=== PATIENT | female | born 1995 | race Asian ===

== ENCOUNTER 2018-07-15 09:20 | Outpatient (CLI) | payer MEDICAID ==
[2018-07-15 12:49] LABS: HGB - HEMOGLOBIN 12.1 g/dL (12.0-16.0); MEAN CORPUSCULAR HEMOGLOBIN 31.8 pg (27.0-31.0); MEAN CORPUSCULAR HGB CONC 34.2 g/dL (32.0-36.0); MEAN CORPUSCULAR VOLUME 92.9 fL (81.0-99.0); MEAN PLATELET VOLUME 8.5 fL (7.9-10.8); RED BLOOD COUNT 3.8 10^6/uL (4.20-5.40); RED CELL DISTRIBUTION WIDTH 12.9 % (12.0-15.0); WHITE BLOOD COUNT 14.7 x10^3/uL (4.8-10.8)
== END 2018-07-15 23:59 | disposition home or self-care (01) ==
LOC: LAB.N 09:20
PROVIDERS: ATTEND Obstetrics & Gynecology
DX: O09.899 Supervision of other high risk pregnancies, unspecified trimester (principal)
CPT/HCPCS: 36415; 82950; 85027; 86850

== ENCOUNTER 2018-09-16 14:29 | Outpatient (CLI) | payer MEDICAID ==
[2018-09-17 12:56] LABS: HEPATITIS C ANTIBODY NON-REACTIVE (NON-REACTIVE)
[2018-09-17 14:57] LABS: HIV AG/AB 4TH GEN NON-REACTIVE (NON-REACTIVE)
[2018-09-20 13:31] LABS: HSV 2 IGG TYPE SPECIFIC AB <0.90 index
== END 2018-09-16 14:30 | disposition home or self-care (01) ==
LOC: LAB 14:29
PROVIDERS: ATTEND Nurse Practitioner Obstetrics & Gynecology
DX: Z36.85 Encounter for antenatal screening for Streptococcus B (principal); B19.10 Unspecified viral hepatitis B without hepatic coma
CPT/HCPCS: 36415; 81599; 86592; 86695; 86696; 86803; 87389; 87517

== ENCOUNTER 2018-09-27 14:04 | Outpatient (CLI) | payer MEDICAID ==
[2018-09-27 14:30] LABS: ALT ALANINE AMINOTRANSFERASE 13 IU/L (10-60); AST ASPARTATE AMINOTRANSFERASE 17 IU/L (10-42)
== END 2018-09-27 14:05 | disposition home or self-care (01) ==
LOC: LAB 14:04
PROVIDERS: ATTEND Obstetrics & Gynecology
DX: B19.10 Unspecified viral hepatitis B without hepatic coma (principal)
CPT/HCPCS: 36415; 84450; 84460

== ENCOUNTER 2018-09-28 13:32 | Outpatient (CLI) | payer MEDICAID | END 2018-09-28 23:59 | disposition home or self-care (01) | LOC: LAB.R 13:32 | PROVIDERS: ATTEND Obstetrics & Gynecology | DX: Z36.89 Encounter for other specified antenatal screening (principal) | CPT/HCPCS: 87797 ==

== ENCOUNTER 2018-10-05 08:23 | Inpatient (IN) | payer MEDICAID ==
[2018-10-05 09:37] LABS: RUPTURE OF MEMBRANES PLUS NEGATIVE (NEGATIVE)
[2018-10-05] MEDS ORDERED: SODIUM CHLORIDE FLUSH 0.9% 10 ML SYRINGE IVP PRN (11:33)
[2018-10-05] MEDS ORDERED: fentaNYL 100 MCG/2 ML VIAL IVP PRN (11:33)
[2018-10-05] MEDS ORDERED: ONDANSETRON 4 MG/2 ML VIAL IVP PRN ×2 (11:33→17:52)
[2018-10-05] MEDS: LACTATED RINGERS 1,000 ML IV SCH ×2 (11:50→16:30)
--- NOTE | 2018-10-05 12:19 | HISTORY & PHYSICAL EXAMINATION ---
Chief Complaint - Chief Complaint Chief Complaint: LEAKAGE OF FLUID History of Present Illness - Admitted From Admitted From:: HOME - History Obtained From Records Reviewed: YES History obtained from: PATIENT Exam Limitations: NONE - History of Present Illness HPI Comment/Other: 23 yo with EDC 10/16/18 EGA 38 3/7 weeks admitted with gross SROM clear at 0200 hours. On exam noted to be 4/60/-2/VTX at 1106 hours. Noted to have Category I tracing and occasional rate contraction. Admitted for delivery. Adequate pelvis, Leopolds 7 - 7 1/2 lbs, GBS Neg. Patient transferred care from [facility]. Seen at [facility] for first time on 08/19/18 @ 31 5/7 weeks. Referred to [facility]. DC @ [place] from [facility] due to Hepatitis B Carrier, with normal LFT and Hep B viral load of 243 at 12 weeks. M recommended: 1) Repeat viral load & LFTs @ 28 & 36 weeks (not done at 28 weeks, done at 36 weeks): -if viral load >20,000 IU/mL consider tenofovir therapy 2) Route of delivery for obstetrical indications, not viral load. 3) HBIG and Hep B vaccine immediately pp 4) Breast Feeding is OK Viral load at 12 weeks was 243 with normal LFTs. Additional labs at 12 weeks: HBsAg: + HBviralE Ag: Neg HB viral E Ab: + HCV Ab: Neg Viral load on 09/16/18: 819 Other Labs: CF DNA 46xy Rubella <10 without interpretation (will treat as Equivocal/Neg) MBT B POS PNAS Neg Syphillis Neg (09/16/18 RPR NR) HIV NR 03/14/18: PAP WNL GC/CT NEG X 2 1 hr GTT 129 on 07/15/18 AST/ALT 17/13 (09/27/18) 09/16/18 Tests: Hep C Ab NR HSV I POS HSV II NR (Patient placed on acyclovir prophylaxis but HSV II test negative. Patient with no hx genital HSV and no sx or lesions on admission). -This was explained to patient and partner and they voiced understanding about negative HSV II results and no need to take acyclovir. 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 - Substance History Use: Uses substance without health or social issues: NONE Abuse: Recurrent use of substance despite neg consequences: NONE Dependence: Experiences withdrawal or developed tolerances: NONE Meds/Allgy - Allergies Allergies/Adverse Reactions: Allergies Allergy/AdvReac Type Severity Reaction Status Date / Time No Known Drug Allergies Allergy Verified 10/05/18 11:29 Review of Systems - All Other Systems All Other Systems: reports: Other (ROS NEG FOR HEENT/CV/RESP/MS/NM/SKIN/EDOCRINE/GI//PSYCH) Exam - Vital Signs Vital Signs: Vital Signs x48h Temp Pulse Resp BP Pulse Ox 10/05/18 08:40 36.8 C 81 16 105/70 100 - Physical Exam General Appearance: positive: No acute distress, Alert Eyes Bilateral: positive: Normal inspection, PERRL ENT: positive: ENT inspection nml Neck: positive: Nml inspection, Thyroid nml Respiratory: positive: Chest non-tender, No respiratory distress Cardiovascular: positive: Regular rate & rhythm, No murmur, No gallop Peripheral Pulses: positive: 2+ Abdomen: positive: Non-tender, No organomegaly Back: positive: Nml inspection Skin: positive: Color nml, No rash, Warm Extremities: positive: Non-tender, Full ROM, Nml appearance, No pedal edema Neurologic/Psychiatric: positive: Oriented x3, CN's nml (2-12), Motor nml (CX 4/60/-2 with gross clear fluid on perineum and coming out vagina.) Conclusion/Plan - Problem List (1) SROM (spontaneous rupture of membranes) Conclusion/Plan: # 38 3/7 weeks with SROM clear at 0200 hours w/ cervix 4/60/2 @ 1106 hours, occas. cxn with Category I FHR, GBS Neg, for pitocin augmentation. # Hep B Carrier seen by MFM: See my HPI for recommendations. Peds aware regarding HBIG and vaccine immediate pp for # Vaccines: Patient did get TDAP # MBT RH POS # Routine orders. Pitocin augmentation of labor. Note: HSV II testing this month was NEG.
[2018-10-05 12:27] LABS: BASOPHILS % (AUTO) 0.3 %; EOSINOPHILS % (AUTO) 0.2 %; HGB - HEMOGLOBIN 13.5 g/dL (12.0-16.0); LYMPHOCYTES # (AUTO) 1.7 10^3/uL (1.5-3.5); LYMPHOCYTES % (AUTO) 10.2 %; MEAN CORPUSCULAR HEMOGLOBIN 31.5 pg (27.0-31.0); MEAN CORPUSCULAR HGB CONC 34.4 g/dL (32.0-36.0); MEAN CORPUSCULAR VOLUME 91.5 fL (81.0-99.0); MEAN PLATELET VOLUME 8.7 fL (7.9-10.8); MONOCYTES # (AUTO) 0.7 10^3/uL (0.0-1.0); NEUTROPHILS # (AUTO) 14.2 10^3/uL (1.5-6.6); NEUTROPHILS % (AUTO) 85.3 %; PLT - PLATELET COUNT 181 10^3/uL (130-450); RED BLOOD COUNT 4.29 10^6/uL (4.20-5.40); RED CELL DISTRIBUTION WIDTH 13.8 % (12.0-15.0); WHITE BLOOD COUNT 16.6 x10^3/uL (4.8-10.8)
[2018-10-05] MEDS: OXYTOCIN/SODIUM CHLORIDE 500 ML IV SCH (13:01)
[2018-10-05] MEDS ORDERED: fent/BUPIV 2 MCG/0.125% 250 ML EP ONE (16:22)
[2018-10-05] MEDS ORDERED: NALBUPHINE 10 MG/ML AMP IVP PRN (17:52)
[2018-10-05] MEDS ORDERED: METOCLOPRAMIDE 10 MG/2 ML VIAL IVP PRN (17:52)
[2018-10-05] MEDS ORDERED: ePHEDrine 50 MG/ML VIAL IVP PRN (17:52)
[2018-10-05] MEDS ORDERED: diphenhydrAMINE INJ 50 MG/ML VIAL IVP PRN (17:52)
[2018-10-05] MEDS ORDERED: LACTATED RINGERS 500 ML IV ONE (17:52)
[2018-10-05] MEDS ORDERED: NALOXONE 0.4 MG/ML VIAL IVP PRN (17:52)
--- NOTE | 2018-10-05 17:52 | ANESTHESIA ---
Pre-Anesthesia VS, & Labs - Diagnosis term labor, IUP - Procedure GABBY Vital Signs: Temp Pulse Resp BP Pulse Ox 36.8 C 81 16 105/70 100 10/05/18 08:40 10/05/18 08:40 10/05/18 08:40 10/05/18 08:40 10/05/18 08:40 Height 5 ft 6.14 in Weight (kg) 73.028 kg - NPO Last Fluid Intake: t/o day - Is Patient ?: Yes - Lab Results Current Lab Results: Laboratory Tests 10/05/18 11:50: Blood Type B POSITIVE, Antibody Screen NEGATIVE 10/05/18 11:50: WBC 16.6 H, RBC 4.29, Hgb 13.5, Hct 39.2, MCV 91.5, MCH 31.5 H, MCHC 34.4, RDW 13.8, Plt Count 181, MPV 8.7, Neut # (Auto) 14.2 H, Lymph # (Auto) 1.7, [place] # (Auto) 0.7, Eos # (Auto) 0.0, Baso # (Auto) 0.0, Absolute Nucleated RBC 0.00, Nucleated RBC % 0.0 Lab results reviewed: Yes Fish Bones: 10/05/18 11:50 Home Medications and Allergies Active Medications Fentanyl (Fentanyl) 50 mcg IVP Q1H PRN PRN Reason: PAIN Last Admin: 10/05/18 16:28 Dose: 50 mcg Lactated Ringer's (Lr) 1,000 mls @ 150 mls/hr IV .Q6H40M [facility] Last Admin: 10/05/18 16:30 Dose: 150 mls/hr Oxytocin/Sodium Chloride (Pitocin/Sodium Chloride) 500 mls @ 1 mls/hr IV TITR HUGH; Protocol Last Admin: 10/05/18 13:01 Dose: 1 milliunit/min, 1 mls/hr Ondansetron HCl (Zofran Inj) 4 mg IVP Q4H PRN PRN Reason: Nausea / Vomiting Sodium Chloride (Normal Saline Flush 0.9%) 10 ml IVP PRN PRN PRN Reason: NEEDED PER PROVIDER ORDERS Sodium Chloride (Normal Saline Flush 0.9%) 10 ml IVP 0100,0900,1700 [facility] Allergies/Adverse Reactions: Allergies Allergy/AdvReac Type Severity Reaction Status Date / Time No Known Drug Allergies Allergy Verified 10/05/18 11:29 Anes History & Medical History - Anesthetic History Anesthesia Complications: reports: No previous complications Family history of Anesthesia Complications: Denies Family history of Malignant Hyperthermia: Denies - Medical History Cardiovascular: reports: None Pulmonary: reports: None Gastrointestinal: reports: Hepatitis (Hepatitis B Carrier (see HPI)) Urinary: reports: None Neuro: reports: None Musculoskeletal: reports: None Skin: reports: None Smoking Status: Never smoker Other Past Medical History: NONE Exam General: Alert, Oriented x3, Cooperative Dental: WNL Mallampati classification: II Thyromental Distance: 4-6 cm Respiratory: No respiratory distress Cardiovascular: Regular rate Mental/Cognitive Status: Alert/Oriented X3, Normal for patient Plan Anesthesia Type: Epidural Consent for Procedure(s) Verified and Reviewed: Yes Code Status: Attempt Resuscitation ASA classification: 2-Mild systemic disease Is this case an emergency?: No
--- NOTE | 2018-10-05 18:10 | PROVIDER PROGRESS NOTE ---
Subjective - Prog Note Date Prog Note Date: 10/05/18 Prog Note Time: 16:00 - Subjective Subjective: 550/-1 AT 1558 HOURS. CATEGORY 1 WITH REGULAR CONTRACTIONS. ON 4 MIU. Objective - Vital Signs/Intake & Output Intake & Output: Intake & Output 10/02/18 10/03/18 10/04/18 10/05/18 23:59 23:59 23:59 23:59 Intake Total 1000 Output Total 375 Balance 625 - Lab Results Fish Bones: 10/05/18 11:50 Other Labs: Lab Results x24hrs 10/05/18 10/05/18 10/05/18 Range/Units 11:50 11:50 09:05 WBC 16.6 H (4.8-10.8) x10^3/uL RBC 4.29 (4.20-5.40) 10^6/uL Hgb 13.5 (12.0-16.0) g/dL Hct 39.2 (37.0-47.0) % MCV 91.5 (81.0-99.0) fL MCH 31.5 H (27.0-31.0) pg MCHC 34.4 (32.0-36.0) g/dL RDW 13.8 (12.0-15.0) % Plt Count 181 (130-450) 10^3/uL MPV 8.7 (7.9-10.8) fL Neut # (Auto) 14.2 H (1.5-6.6) 10^3/uL Lymph # (Auto) 1.7 (1.5-3.5) 10^3/uL [place] # (Auto) 0.7 (0.0-1.0) 10^3/uL Eos # (Auto) 0.0 (0.0-0.7) 10^3/uL Baso # (Auto) 0.0 (0.0-0.1) 10^3/uL Absolute Nucleated RBC 0.00 x10^3/uL Nucleated RBC % 0.0 /100WBC Membranes Rupture NEGATIVE (NEGATIVE) Blood Type B POSITIVE Antibody Screen NEGATIVE
[2018-10-05] MEDS ORDERED: LIDOCAINE-MPF 1% 30 ML VIAL ONE (18:19)
[2018-10-05] MEDS ORDERED: WITCH HAZEL/GLYCERIN 1 EACH MED..PAD TOP PRN (19:59)
[2018-10-05] MEDS ORDERED: MEASLES,MUMPS & RUBELLA VACC 0.5 ML VIAL SUBQ ONE (19:59)
[2018-10-05] MEDS ORDERED: oxyCODONE 5 MG TABLET PO PRN (19:59)
[2018-10-05] MEDS ORDERED: HYDROCORTISONE 1% CREAM 28 GM TUBE PR PRN (19:59)
--- NOTE | 2018-10-05 20:12 | PROVIDER PROGRESS NOTE ---
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 Was able to push to C/C/+4 until maternal exhaustion. Verbal consent obtained for vacuum procedure. Kiwi vacuum applied in routine fashion and suction placed in normal green zone during two consecutive contractions. On 2nd set of push-pulls patient delivered viable male infant at 1900 hours weighing 7 lbs 12 onz or 3,515 GM with 9/10. Cord gases could not be obtained. Pitocin infusion started and placenta delivered spontaneously at 1902 hours. Vaginal exam revealed intact cervix and and vaginal sidewalls. Patient had 2nd degree perineal lac and small right superficial PUL that was not bleeding. PUL left alone. Perineal lac repaired with 3-0 monocryl in layers. EBL 400 mL. Mother and baby doing well. Objective - Vital Signs/Intake & Output Vital Signs: Vital Signs x48h Pulse BP Pulse Ox 10/05/18 19:25 93 117/54 L 100 10/05/18 19:10 91 117/47 L 100 Intake & Output: Intake & Output 10/02/18 10/03/18 10/04/18 10/05/18 23:59 23:59 23:59 23:59 Intake Total 1000 Output Total 375 Balance 625 - Lab Results Fish Bones: 10/05/18 11:50 Other Labs: Lab Results x24hrs 10/05/18 10/05/18 10/05/18 Range/Units 11:50 11:50 09:05 WBC 16.6 H (4.8-10.8) x10^3/uL RBC 4.29 (4.20-5.40) 10^6/uL Hgb 13.5 (12.0-16.0) g/dL Hct 39.2 (37.0-47.0) % MCV 91.5 (81.0-99.0) fL MCH 31.5 H (27.0-31.0) pg MCHC 34.4 (32.0-36.0) g/dL RDW 13.8 (12.0-15.0) % Plt Count 181 (130-450) 10^3/uL MPV 8.7 (7.9-10.8) fL Neut # (Auto) 14.2 H (1.5-6.6) 10^3/uL Lymph # (Auto) 1.7 (1.5-3.5) 10^3/uL [place] # (Auto) 0.7 (0.0-1.0) 10^3/uL Eos # (Auto) 0.0 (0.0-0.7) 10^3/uL Baso # (Auto) 0.0 (0.0-0.1) 10^3/uL Absolute Nucleated RBC 0.00 x10^3/uL Nucleated RBC % 0.0 /100WBC Membranes Rupture NEGATIVE (NEGATIVE) Blood Type B POSITIVE Antibody Screen NEGATIVE
[2018-10-05] MEDS: DOCUSATE SODIUM 100 MG CAPSULE PO SCH (20:31)
[2018-10-05] MEDS: IBUPROFEN 800 MG TABLET PO PRN (20:31)
[2018-10-05] MEDS: ACETAMINOPHEN 500 MG TABLET PO PRN (20:31)
[2018-10-06] MEDS: SODIUM CHLORIDE FLUSH 0.9% 10 ML SYRINGE IVP SCH ×2 (00:59→07:58)
[2018-10-06] MEDS: ACETAMINOPHEN 500 MG TABLET PO PRN ×2 (04:02→18:59)
[2018-10-06] MEDS: IBUPROFEN 800 MG TABLET PO PRN ×2 (04:02→18:59)
[2018-10-06 06:42] LABS: BASOPHILS % (AUTO) 0.1 %; EOSINOPHILS % (AUTO) 0.1 %; HGB - HEMOGLOBIN 11.1 g/dL (12.0-16.0); LYMPHOCYTES % (AUTO) 10.4 %; MEAN CORPUSCULAR HEMOGLOBIN 31.7 pg (27.0-31.0); MEAN CORPUSCULAR HGB CONC 33.8 g/dL (32.0-36.0); MEAN CORPUSCULAR VOLUME 93.7 fL (81.0-99.0); MEAN PLATELET VOLUME 8.8 fL (7.9-10.8); MONOCYTES % (AUTO) 5.3 %; NEUTROPHILS % (AUTO) 84.1 %; PLT - PLATELET COUNT 181 10^3/uL (130-450); RED BLOOD COUNT 3.51 10^6/uL (4.20-5.40); RED CELL DISTRIBUTION WIDTH 13.9 % (12.0-15.0); WHITE BLOOD COUNT 19.1 x10^3/uL (4.8-10.8)
[2018-10-06] MEDS: SIMETHICONE CHEW 80 MG TABLET PO SCH (07:57)
--- NOTE | 2018-10-06 11:18 | ANESTHESIA POST OP EVALUATION ---
Anesthesia Post Eval - Post Anesthesia Eval CV Function Including HR & BP: positive: Stable - Other Details/Therapies Other Details/Therapies: Patient reports epidural worked well to control labor pain. Denies any headache or residual effect. No apparent anesthetic complications
--- NOTE | 2018-10-06 14:32 | PROVIDER PROGRESS NOTE ---
Subjective - Prog Note Date Prog Note Date: 10/06/18 Prog Note Time: 14:30 - Subjective Pt reports feeling: Improved (No complaints doing well.) Objective - Vital Signs/Intake & Output Reviewed Vital Signs: Yes Vital Signs: Vital Signs x48h Temp Pulse Resp BP Pulse Ox 10/06/18 08:11 37.3 C 71 16 94/56 L 98 Intake & Output: Intake & Output 10/03/18 10/04/18 10/05/18 10/06/18 23:59 23:59 23:59 23:59 Intake Total 1000 300 Output Total 375 600 Balance 625 -300 - Objective General Appearance: positive: No acute distress Abdomen: positive: Non-tender, Other (Ux firm U-4 and NT normal lochia) Extremities: positive: Non-tender, Full ROM, Nml appearance, No pedal edema Neurologic/Psychiatric: positive: Oriented x3 - Lab Results Fish Bones: 10/06/18 06:07 Other Labs: Lab Results x24hrs 10/06/18 Range/Units 06:07 WBC 19.1 H (4.8-10.8) x10^3/uL RBC 3.51 L (4.20-5.40) 10^6/uL Hgb 11.1 L (12.0-16.0) g/dL Hct 32.9 L (37.0-47.0) % MCV 93.7 (81.0-99.0) fL MCH 31.7 H (27.0-31.0) pg MCHC 33.8 (32.0-36.0) g/dL RDW 13.9 (12.0-15.0) % Plt Count 181 (130-450) 10^3/uL MPV 8.8 (7.9-10.8) fL Neut # (Auto) 16.0 H (1.5-6.6) 10^3/uL Lymph # (Auto) 2.0 (1.5-3.5) 10^3/uL [place] # (Auto) 1.0 (0.0-1.0) 10^3/uL Eos # (Auto) 0.0 (0.0-0.7) 10^3/uL Baso # (Auto) 0.0 (0.0-0.1) 10^3/uL Absolute Nucleated RBC 0.01 x10^3/uL Nucleated RBC % 0.0 /100WBC Assessment/Plan - Problem List (2) care and examination Impression: PPD #1 doing well Routine care.
[2018-10-06] MEDS: DOCUSATE SODIUM 100 MG CAPSULE PO SCH ×2 (20:50)
[2018-10-07] MEDS: IBUPROFEN 800 MG TABLET PO PRN ×2 (05:45→21:05)
[2018-10-07] MEDS: ACETAMINOPHEN 500 MG TABLET PO PRN ×2 (05:46→21:05)
[2018-10-07] MEDS: LACTATED RINGERS 1,000 ML IV SCH ×4 (05:59→06:02)
[2018-10-07] MEDS: SIMETHICONE CHEW 80 MG TABLET PO SCH ×3 (05:59→06:02)
[2018-10-07] MEDS: OXYTOCIN/SODIUM CHLORIDE 500 ML IV SCH (06:00)
[2018-10-07] MEDS: SODIUM CHLORIDE FLUSH 0.9% 10 ML SYRINGE IVP SCH ×2 (06:00→06:01)
--- NOTE | 2018-10-07 11:45 | PROVIDER PROGRESS NOTE ---
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 Baby probably going home tomorrow.) Objective - Vital Signs/Intake & Output Vital Signs: Vital Signs x48h Temp Pulse Resp BP Pulse Ox 10/07/18 09:54 36.6 C 70 17 90/45 L 97 10/07/18 05:52 36.8 C 78 16 95/59 L 100 Intake & Output: Intake & Output 10/04/18 10/05/18 10/06/18 10/07/18 23:59 23:59 23:59 23:59 Intake Total 1000 300 Output Total 375 600 Balance 625 -300 - Objective General Appearance: positive: No acute distress, Alert Abdomen: positive: Non-tender, Other (Ux U-4 and NT normal lochia) Skin: positive: Color nml, No rash, Warm Extremities: positive: Non-tender (Ux Firm U-4 and NT normal lochia MS/NM NC) - Lab Results Fish Bones: 10/06/18 06:07 Assessment/Plan - Problem List (3) care and examination Impression: # PPD 2 doing well # Routine care. 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
[2018-10-07] MEDS: DOCUSATE SODIUM 100 MG CAPSULE PO SCH (21:05)
[2018-10-08] MEDS: IBUPROFEN 800 MG TABLET PO PRN ×2 (06:23→14:31)
[2018-10-08] MEDS: SIMETHICONE CHEW 80 MG TABLET PO SCH ×2 (09:43→15:48)
[2018-10-08] MEDS ORDERED: MEASLES,MUMPS & RUBELLA VACC 0.5 ML VIAL SUBQ ONE (12:00)
--- NOTE | 2018-10-08 12:08 | DISCHARGE SUMMARY ---
"Discharge Summary Admit Date: 10/05/18 Discharge Date: 10/08/18 Discharging Provider: ZARA Code Status: Attempt Resuscitation Condition at Discharge: Good Discharge Disposition: 01 Home, Self Care - DIAGNOSES Admission Diagnoses: SROM LABOR TERM Discharge Diagnoses with Status of Each Condition: VACUUM ASSITED VAGINAL DELIVERY (STABLE) CHRONIC HEPATITIS B CARRIER (STABLE) - HPI History of Present Illness: - History of Present Illness HPI Comment/Other: 23 yo with EDC 10/16/18 EGA 38 3/7 weeks admitted with gross SROM clear at 0200 hours. On exam noted to be 4/60/-2/VTX at 1106 hours. Noted to have Category I tracing and occasional rate contraction. Admitted for delivery. Adequate pelvis, Leopolds 7 - 7 1/2 lbs, GBS Neg. Patient transferred care from [facility]. Seen at [facility] for first time on 08/19/18 @ 31 5/7 weeks. Referred to [facility] [place] from [facility] due to Hepatitis B Carrier, with normal LFT and Hep B viral load of 243 at 12 weeks. MFM recommended: 1) Repeat viral load & LFTs @ 28 & 36 weeks (not done at 28 weeks, done at 36 weeks): -if viral load >20,000 IU/mL consider tenofovir therapy 2) Route of delivery for obstetrical indications, not viral load. 3) HBIG and Hep B vaccine immediately pp 4) Breast Feeding is OK Viral load at 12 weeks was 243 with normal LFTs. Additional labs at 12 weeks: HBsAg: + HBviralE Ag: Neg HB viral E Ab: + HCV Ab: Neg Viral load on 09/16/18: 819 Other Labs: CF DNA 46xy Rubella <10 without interpretation (will treat as Equivocal/Neg) MBT B POS PNAS Neg Syphillis Neg (09/16/18 RPR NR) HIV NR 03/14/18: PAP WNL GC/CT NEG X 2 1 hr GTT 129 on 07/15/18 AST/ALT 17/13 (09/27/18) 09/16/18 Tests: Hep C Ab NR HSV I POS HSV II NR (Patient placed on acyclovir prophylaxis but HSV II test negative. Patient with no hx genital HSV and no sx or lesions on admission). -This was explained to patient and partner and they voiced understanding about negative HSV II results and no need to take acyclovir. 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 - Substance History Use: Uses substance without health or social issues: NONE Abuse: Recurrent use of substance despite neg consequences: NONE Dependence: Experiences withdrawal or developed tolerances: NONE Meds/Allgy - Allergies Allergies/Adverse Reactions: Allergies Allergy/AdvReac Type Severity Reaction Status Date / Time No Known Drug Allergies Allergy Verified 10/05/18 11:29 Review of Systems - All Other Systems All Other Systems: reports: Other (ROS NEG FOR HEENT/CV/RESP/MS/NM /SKIN/EDOCRINE/GI//PSYCH) Exam - Vital Signs Vital Signs: Vital Signs x48h Temp Pulse Resp BP Pulse Ox 10/05/18 08:40 36.8 C 81 16 105/70 100 - Physical Exam General Appearance: positive: No acute distress, Alert Eyes Bilateral: positive: Normal inspection, PERRL ENT: positive: ENT inspection nml Neck: positive: Nml inspection, Thyroid nml Respiratory: positive: Chest non-tender, No respiratory distress Cardiovascular: positive: Regular rate & rhythm, No murmur, No gallop Peripheral Pulses: positive: 2+ Abdomen: positive: Non-tender, No organomegaly Back: positive: Nml inspection Skin: positive: Color nml, No rash, Warm Extremities: positive: Non-tender, Full ROM, Nml appearance, No pedal edema Neurologic/Psychiatric: positive: Oriented x3, CN's nml (2-12), Motor nml (CX 4/60/-2 with gross clear fluid on perineum and coming out vagina.) Conclusion/Plan - Problem List (1) SROM (spontaneous rupture of membranes) Conclusion/Plan: # 38 3/7 weeks with SROM clear at 0200 hours w/ cervix 60/2 @ 1106 hours, occas. cxn with Category I FHR, GBS Neg, for pitocin augmentation. # Hep B Carrier seen by MFM: See my HPI for recommendations. Peds aware regarding HBIG and vaccine immediate pp for # Vaccines: Patient did get TDAP # MBT RH POS # Routine orders. Pitocin augmentation of labor. Note: HSV II testing this month was NEG. - CONSULTS | PROCEDURES Consultations: NONE Procedures: EPIDURAL ANESTHESIA VACUUM ASSISTED VAGINAL DELIVERY - HOSPITAL COURSE Hospital Course: The patient progressed through labor without complication on low dose pitocin augmentation. Delivered viable 3,515 gm male . Maternal Hep B count approx 800, well below number of 20,000 for which therapy would have been recommended. Peds aware of maternal diagnosis and immunizations . Mother had an uncomplicated course. - ALLERGIES Allergies/Adverse Reactions: Allergies Allergy/AdvReac Type Severity Reaction Status Date / Time No Known Drug Allergies Allergy Verified 10/05/18 11:29 - MEDICATIONS Home Medications Other | Comments: Motrin 800 mg #45: 1 p.o. q8h WF, 1 RF Colace 100 mg #40: 1 p.o. bid PNV (at home) - PHYSICAL EXAM AT DISCHARGE General Appearance: positive: No acute distress, Alert Eyes Bilateral: positive: Normal inspection Peripheral Pulses: positive: 2+ Abdomen: positive: Non-tender, No organomegaly, Other (Ux firm U-6 and NT, normal lochia) Back: positive: Nml inspection Skin: positive: Color nml, No rash, Warm Extremities: positive: Non-tender, Full ROM, Nml appearance Neurologic/Psychiatric: positive: Oriented x3 - LABS Result Diagrams: 10/06/18 06:07 - FOLLOW UP Follow Up: Dr. Knowles at [facility] in 6 weeks. Patient to make new appointment in [facility] in [place] in 1-2 weeks, she has information card with phone number. - TIME SPENT Time Spent in Discharge (Minutes): 45"
--- NOTE | 2018-10-08 12:17 | Discharge Plan ---
Discharge Plan Disposition: 01 Home, Self Care Condition: Good Diet: Regular Activity Restrictions: see written instructions Shower Restrictions: No Additional Instructions or Follow Up instructions: See Dr. Knowles in [facility] 6 weeks Patient to see her PCM in [place] for new patient visit, she has the clinic information, told to call clinic in 1-2 weeks, to follow for Chronic Hep B No Smoking: If you smoke, Please STOP! Call for help. Follow-up with: Tip Knowles MD [Provider Admit Priv/Credential] -
[2018-10-08] MEDS: DOCUSATE SODIUM 100 MG CAPSULE PO SCH ×2 (14:30→14:31)
[2018-10-08 15:09] VITALS: BP 103/64
--- NOTE | 2018-10-08 16:09 | Labor Flowsheet ---
Labor Flowsheet Datetime Report Generated by CPN: 10/08/2018 16:08 Datetime: 10/06/2018 21:06 VITAL SIGNS NBP Sys/Sonia/Mean (mmHg): 94 : 52 : 61 Pulse: 74 LaborFlag: Labor Datetime: 10/05/2018 21:00 SpO2 (%): 94 Datetime: 10/05/2018 19:51 Membranes Ruptured Date/Time: 10/04/2018 02:00 Membranes Rupture Method: Spontaneous Datetime: 10/05/2018 19:00 Respirations: Unable to get accurate assessment of respiratory rate d/t pt hyperventilating to cope with pain. Pt was repeatedly encouraged to slow her breathing and relax inbetween ctx. O2 sat WNL, p t pink, no signs of cyanosis, difficulty breathing, or lightheadedness. UTERINE ACTIVITY Monitor Mode: External Frequency (min): 2 Quality: Strong Duration (sec): 40-80 Pattern: Normal: <= 5 Contractions in 10 Minutes Resting Tone (Palpate): Relaxed ASSESSMENT A Monitor Mode: Telemetry FHR Baseline Rate : indeterminate Variability: Minimal - Undetectable to <=5 bpm Category: Category II Datetime: 10/05/2018 18:55 Accelerations: None Decelerations: Early; Variable Datetime: 10/05/2018 18:20 Actions for Decelerations: Provider Notified Datetime: 10/05/2018 18:10 VAGINAL EXAM Dilatation (cm): 10.0 COMMUNICATION Communication: Provider at Bedside Provider Notified (Name): Kim Datetime: 10/05/2018 18:00 Stage of : Labor Datetime: 10/05/2018 17:57 Communication Comments: Notfited provider pt is 9cm, feels like she needs to "poop". Cervix is retr actable. Please come check pt and assess for delivery Datetime: 10/05/2018 17:55 Effacement (%): 100 Station: 2 Exam by: EM Datetime: 10/05/2018 17:50 Monitor Interventions for UA: [place] Adjusted Datetime: 10/05/2018 17:34 Patient Position/Activity: Right Lateral; Low Fowlers Epidural Procedure: Loading Dose Datetime: 10/05/2018 17:03 Anesthesia Comments: cath pulled Datetime: 10/05/2018 17:00 FHR Baseline Changes: No Baseline Change Datetime: 10/05/2018 16:53 PROCEDURE TIME OUT Procedure Verify: Correct Patient Identity; Correct Side and Site are Marked; Accurate Procedure Co nsent Form; Agreement on Procedure to be Done; Correct Patient Position; Relevant Images and Results are Properly Labeled and Displayed; Addressed Need to Administer Antibiotics or Fluids for Irrigation ; Safety Precautions Based on Patient History or Medication Use ANESTHESIA Epidural Positioning: Sitting Datetime: 10/05/2018 16:52 MEDICATIONS Pitocin (milliunits): Decreased to @ 3 Datetime: 10/05/2018 16:40 Temperature (C): 36.8 PAIN Pain Scale: 10 Pain Assessment Comments: Pt hyperventilating with ctx Datetime: 10/05/2018 16:28 Analgesics/Sedatives: Fentanyl (mcg) @ 50 Datetime: 10/05/2018 16:11 I/O Interventions: Up to BR Datetime: 10/05/2018 14:30 Temperature Route: Oral Datetime: 10/05/2018 13:41 Hygiene: Peripad Changed Datetime: 10/05/2018 11:50 PATIENT CARE IV/Blood Work: IV Started; Labs Drawn with IV Start
== END 2018-10-08 16:00 | disposition home or self-care (01) | DRG 806 ==
LOC: FBP 08:23 → WFO 08:23 → FBP 09:33 → WFO 11:32 → FBP 11:33
PROVIDERS: ADMIT Obstetrics & Gynecology; ATTEND Obstetrics & Gynecology
PROC: 10D07Z6 Extraction of Products of Conception, Vacuum, Via Natural or Artificial Opening (ICD-10-PCS; principal; 2018-10-05)
PROC: 0KQM0ZZ Repair Perineum Muscle, Open Approach (ICD-10-PCS; 2018-10-05)
DX: O99.834 Other infection carrier state complicating childbirth (principal); B18.1 Chronic viral hepatitis B without delta-agent; O75.81 Maternal exhaustion complicating labor and delivery; O70.1 Second degree perineal laceration during delivery; Z37.0 Single live birth; Z3A.38 38 weeks gestation of pregnancy; Z86.19 Personal history of other infectious and parasitic diseases
CPT/HCPCS: 36415; 84112; 85025; 86850; 86900; 86901; 99213

== ENCOUNTER 2018-11-28 08:00 | Outpatient (CLI) | payer MEDICAID ==
[2018-11-28 19:42] LABS: BASOPHILS # (AUTO) 0.1 10^3/uL (0.0-0.1); BASOPHILS % (AUTO) 0.6 %; EOSINOPHILS # (AUTO) 0.1 10^3/uL (0.0-0.7); HGB - HEMOGLOBIN 14.4 g/dL (12.0-16.0); LYMPHOCYTES % (AUTO) 21.8 %; MEAN CORPUSCULAR HEMOGLOBIN 29.5 pg (27.0-31.0); MEAN CORPUSCULAR HGB CONC 32.7 g/dL (32.0-36.0); MEAN CORPUSCULAR VOLUME 90.4 fL (81.0-99.0); MEAN PLATELET VOLUME 8.8 fL (7.9-10.8); MONOCYTES # (AUTO) 0.7 10^3/uL (0.0-1.0); MONOCYTES % (AUTO) 7.5 %; NEUTROPHILS # (AUTO) 6.4 10^3/uL (1.5-6.6); NEUTROPHILS % (AUTO) 69.1 %; PLT - PLATELET COUNT 241 10^3/uL (130-450); RED BLOOD COUNT 4.89 10^6/uL (4.20-5.40); RED CELL DISTRIBUTION WIDTH 13.7 % (12.0-15.0); WHITE BLOOD COUNT 9.2 x10^3/uL (4.8-10.8)
[2018-11-28 20:00] LABS: FERRITIN 48.4 ng/mL (11.0-306.8)
[2018-11-28 20:12] LABS: ALBUMIN 4.1 g/dL (3.2-5.5); ALBUMIN/GLOBULIN RATIO 1.3 (1.0-2.2); BILIRUBIN,TOTAL 0.6 mg/dL (0.2-1.0); CALCIUM 9.8 mg/dL (8.5-10.3); CREATININE 0.5 mg/dL (0.4-1.0); TOTAL PROTEIN 7.2 g/dL (6.7-8.2)
[2018-11-29 11:16] LABS: HEPATITIS B SURFACE ANTIGEN REACTIVE (NON-REACTIVE)
[2018-11-29 14:06] LABS: HEPATITIS C ANTIBODY NON-REACTIVE (NON-REACTIVE)
[2018-11-29 14:35] LABS: HIV AG/AB 4TH GEN NON-REACTIVE (NON-REACTIVE)
== END 2018-11-28 23:59 | disposition home or self-care (01) ==
LOC: LAB.N 08:00
PROVIDERS: ATTEND Nurse Practitioner
DX: B19.10 Unspecified viral hepatitis B without hepatic coma (principal)
CPT/HCPCS: 36415; 80053; 81599; 82607; 82728; 82746; 83540; 84466; 85025; 86317; 86803; 87340; 87389; 87517

== ENCOUNTER 2018-12-13 08:13 | Outpatient (CLI) | payer MEDICAID ==
--- NOTE | 2018-12-13 18:06 | Ultrasound Report ---
Reason: HEPATITIS B Procedure Date: 12/13/2018 Accession Number: [id number] / [id number] Procedure: US - Abdomen Complete CPT Code: FULL RESULT: EXAM: ABDOMEN ULTRASOUND EXAM DATE: 12/13/2018 09:20 AM. CLINICAL HISTORY: HEPATITIS B. COMPARISON: None. TECHNIQUE: Real-time scanning was performed with static images obtained. FINDINGS: Liver: Normal in size and echotexture. 16.1 cm. Main portal vein flow: Hepatopetal. Gallbladder: Normal. No stones, wall thickening, or sonographic Bro's sign. Biliary System: Common bile duct measures 3.2 mm. No intrahepatic or extrahepatic ductal dilatation. Pancreas: Imaged portion is unremarkable. Kidneys: Right: 10.5 cm longitudinally. Normal. No contour-deforming mass, stones, or hydronephrosis. Left: 10.6 cm longitudinally. Normal. No contour-deforming mass, stones, or hydronephrosis. Spleen: 11.1 cm. Normal in size and echotexture. Aorta and Inferior Vena Cava: Unremarkable. Free fluid: None. IMPRESSION: Normal abdomen ultrasound. RADIA
== END 2018-12-13 08:14 | disposition home or self-care (01) ==
LOC: DI 08:13
PROVIDERS: ATTEND Psychiatry & Neurology Neurology
DX: B19.10 Unspecified viral hepatitis B without hepatic coma (principal)
CPT/HCPCS: 76700

== ENCOUNTER 2021-05-16 12:25 | Outpatient (CLI) | payer MEDICAID | END 2021-05-16 12:26 | disposition home or self-care (01) | LOC: LAB 12:25 | PROVIDERS: ATTEND Obstetrics & Gynecology | DX: R22.1 Localized swelling, mass and lump, neck (principal) | CPT/HCPCS: 36415; 84443 ==

== ENCOUNTER 2021-08-03 16:23 | Outpatient (CLI) | payer MEDICAID ==
--- NOTE | 2021-08-03 17:42 | Ultrasound Report ---
PROCEDURE: Pelvic w/Transvaginal INDICATIONS: DYSMENORRHEA TECHNIQUE: Real-time scanning was performed of the pelvic organs, with image documentation. Additional endovagi nal scanning was necessary due to incomplete visualization of the adnexal and endometrial structures by transabdominal scanning. COMPARISON: None. FINDINGS: No pathologic free abdominal or pelvic fluid. Uterus: Uterus is normal in size at 9.0 x 4.6 x 5.3 cm. The endometrium measures 8 mm in combined t hickness. A mid posterior subserosal fibroid measures 1.3 x 1.0 x 1.8. The cervix has a naboth[facility] cy st. Pelvic vasculature is prominent. Ovaries: The right ovary measures 3.3 x 2.5 x 2.9 cm. There is an involuting cyst measuring 2.0 x 2. 3 x 1.7 cm. The left ovary measures 2.1 x 1.3 x 2.8 cm. IMPRESSION: 1. No acute pelvic abnormality. 2. Involuting right ovarian cyst. 3. Uterine fibroid. Reviewed by: Veto Lemon on 08/03/2021 4:41 PM [place] Approved by: Veto Lemon on 08/03/2021 4:41 PM [place] Station ID: [id number]
== END 2021-08-03 16:24 | disposition home or self-care (01) ==
LOC: DI 16:23
PROVIDERS: ATTEND Obstetrics & Gynecology
DX: N94.6 Dysmenorrhea, unspecified (principal); N83.201 Unspecified ovarian cyst, right side; D25.2 Subserosal leiomyoma of uterus

== ENCOUNTER 2022-10-29 10:00 | Outpatient (CLI) | payer MEDICAID ==
[2022-10-29 15:56] LABS: BILIRUBIN,URINE NEGATIVE (NEGATIVE); GLUCOSE, URINE (UA) NEGATIVE (NEGATIVE); KETONES,URINE (UA) NEGATIVE (NEGATIVE); LEUKOCYTE ESTERASE, URINE SMALL (NEGATIVE); NITRITE,URINE NEGATIVE (NEGATIVE); OCCULT BLOOD,URINE NEGATIVE (NEGATIVE); PH,URINE 6.5 PH (5.0-7.5); PROTEIN,URINE NEGATIVE (NEGATIVE); UROBILINOGEN,URINE 0.2 (NORMAL) E.U./dL (NORMAL)
[2022-10-29 16:00] LABS: CLARITY,URINE CLEAR (CLEAR)
[2022-10-29 16:17] LABS: BACTERIA,URINE Rare /HPF (None Seen); RBC,URINE None Seen /HPF (0-5); SQUAMOUS EPITHELIAL CELL,UR FEW Squamous (<= Few)
== END 2022-10-29 22:35 | disposition home or self-care (01) ==
LOC: LAB.R 10:00
PROVIDERS: ATTEND Obstetrics & Gynecology
DX: Z34.90 Encounter for supervision of normal pregnancy, unspecified, unspecified trimester (principal)
CPT/HCPCS: 81001; 87086

== ENCOUNTER 2022-10-30 13:58 | Outpatient (CLI) | payer MEDICAID ==
[2022-10-30 18:01] LABS: BASOPHILS # (AUTO) 0.1 10^3/uL (0.0-0.1); BASOPHILS % (AUTO) 0.5 %; EOSINOPHILS # (AUTO) 0.1 10^3/uL (0.0-0.7); EOSINOPHILS % (AUTO) 0.6 %; HCT - HEMATOCRIT 41.4 % (37.0-47.0); HGB - HEMOGLOBIN 13.6 g/dL (12.0-16.0); LYMPHOCYTES # (AUTO) 2.2 10^3/uL (1.5-3.5); LYMPHOCYTES % (AUTO) 16.7 %; MEAN CORPUSCULAR HEMOGLOBIN 29.8 pg (27.0-31.0); MEAN CORPUSCULAR HGB CONC 32.9 g/dL (32.0-36.0); MEAN CORPUSCULAR VOLUME 90.6 fL (81.0-99.0); MEAN PLATELET VOLUME 10.3 fL (7.9-10.8); MONOCYTES # (AUTO) 0.6 10^3/uL (0.0-1.0); MONOCYTES % (AUTO) 4.9 %; PLT - PLATELET COUNT 251 10^3/uL (130-450); RED BLOOD COUNT 4.57 10^6/uL (4.20-5.40); RED CELL DISTRIBUTION WIDTH 13.2 % (12.0-15.0)
[2022-10-31 07:09] LABS: RPR Non Reactive (Non Reactive)
[2022-10-31 08:10] LABS: HCV AB Non Reactive (Non Reactive); HIV SCREEN 4TH GENERATION Non Reactive (Non Reactive); VARICELLA-ZOSTER AB IGG 1178 index (Immune >165)
[2022-10-31 09:09] LABS: HBsAG CONFIRMATION Positive (.); HBsAG SCREEN Confirm. indicated (Negative)
== END 2022-10-30 13:59 | disposition home or self-care (01) ==
LOC: LAB.N 13:58
PROVIDERS: ATTEND Obstetrics & Gynecology
DX: Z34.90 Encounter for supervision of normal pregnancy, unspecified, unspecified trimester (principal)
CPT/HCPCS: 36415; 85025; 86592; 86762; 86787; 86803; 86850; 86900; 86901; 87340; 87389

== ENCOUNTER 2022-11-05 10:06 | Outpatient (CLI) | payer MEDICAID ==
[2022-11-05 12:23] LABS: ALBUMIN/GLOBULIN RATIO 1.1 (1.0-2.2); BILIRUBIN,TOTAL 0.6 mg/dL (0.2-1.0); CALCIUM 9.5 mg/dL (8.5-10.3); CREATININE 0.6 mg/dL (0.4-1.0); POTASSIUM 3.9 mmol/L (3.5-5.0); TOTAL PROTEIN 7.6 g/dL (6.7-8.2)
[2022-11-06 06:10] LABS: HEPATITIS BE ANTIGEN Positive (Negative)
[2022-11-09 09:38] LABS: HEPATITIS BE ANTIBODY Positive (Negative)
[2022-11-10 07:10] LABS: HBV IU/ML 290 IU/mL (.); HBV IU/ML LOG10 2.462 (.)
== END 2022-11-05 10:07 | disposition home or self-care (01) ==
LOC: LAB.N 10:06
PROVIDERS: ATTEND Obstetrics & Gynecology
DX: B19.10 Unspecified viral hepatitis B without hepatic coma (principal)
CPT/HCPCS: 36415; 80053; 86707; 87350; 87517

== ENCOUNTER 2022-11-11 09:51 | Outpatient (CLI) | payer MEDICAID ==
--- NOTE | 2022-11-11 16:59 | Ultrasound Report ---
PROCEDURE: OB First Trimester w/TV INDICATIONS: POSITIVE TEST OUTSIDE/PRIOR DATING DATA: Last menstrual period (LMP): 09/16/2022. LMP-based estimated date of delivery (RAFI): 06/23/2023. First dating scan (date and location): 11/11/2022. Estimated date of delivery (RAFI) from first dating scan: 07/06/2023. TECHNIQUE: Real-time scanning was performed of the fetus and maternal pelvic organs, with image documentation. Endovaginal scanning was also performed to better visualize the fetus and maternal ovaries. COMPARISON: None FINDINGS: Embryo: Single intrauterine is identified with crown-rump length measuring 0.48 cm corresp onding to 6 weeks 1 day. Subchorionic hemorrhage is present measuring 1.9 x 1.4 x 0.4 cm. Heart rate: Not identified Measurement variability in dating: +/- 4 weeks by LMP, +/- 7 days by mean sac diameter (use before 6 weeks gestation if crown-rump length not able to be measured), +/- 5 days by crown-rump length (6-12 weeks gestation). Maternal organs: Ovaries are unremarkable. IMPRESSION: Single to measuring 6 weeks 1 day without identified heart tones. Recommend correlation to beta hCG levels and short interval imaging follow-up to document progression versus demise. Reviewed by: Cindy Lovett MD on 11/11/2022 4:57 PM PDT Approved by: Cindy Lovett MD on 11/11/2022 4:57 PM PDT Station ID: [id number]
== END 2022-11-11 09:52 | disposition home or self-care (01) ==
LOC: DI 09:51
PROVIDERS: ATTEND Obstetrics & Gynecology
DX: O36.8310 Maternal care for abnormalities of the fetal heart rate or rhythm, first trimester, not applicable or unspecified (principal); Z3A.01 Less than 8 weeks gestation of pregnancy

== ENCOUNTER 2022-11-24 21:09 | Outpatient (CLI) | payer MEDICAID ==
--- NOTE | 2022-11-24 22:22 | Ultrasound Report ---
PROCEDURE: OB First Trimester w/TV INDICATIONS: POSITIVE TEST OUTSIDE/PRIOR DATING DATA: Last menstrual period (LMP): 09/16/2022. LMP-based estimated date of delivery (RAFI): 06/23/2023. First dating scan (date and location): 11/11/2022. Estimated date of delivery (RAFI) from first dating scan: 07/06/2023. The below data below was generated using the ultrasound RAFI of 07/06/2023 TECHNIQUE: Real-time scanning was performed of the fetus and maternal pelvic organs, with image documentation. Endovaginal scanning was also performed to better visualize the fetus and maternal ovaries. COMPARISON: OB ultrasound 11/11/2022. FINDINGS: Embryo: Newberg-rump length measures 0.65 cm corresponding to gestational age of 6 weeks 3 days. This is minimally increased compared to 11/11/2022 where the crown-rump length measured 0.48 cm. (Prior ges tational age 6 weeks 1 day). Heart rate: Not seen. A yolk sac is seen. Small subchorionic hemorrhage measuring 1.9 x 1.8 x 1.8 cm. Measurement variability in dating: +/- 4 weeks by LMP, +/- 7 days by mean sac diameter (use before 6 weeks gestation if crown-rump length not able to be measured), +/- 5 days by crown-rump length (6-12 weeks gestation). Maternal organs: Ovaries are within normal limits. Left corpus luteum. Cervix is closed. IMPRESSION: Ultrasound findings diagnostic of failure. Absence of embryo with a heart beat 11 or more days after ultrasound showed gestational sac with a yo lk sac. Reviewed by: Steve Tom MD on 11/24/2022 10:21 PM PDT Approved by: Steve Tom MD on 11/24/2022 10:21 PM PDT Station ID: [id number]
== END 2022-11-24 21:10 | disposition home or self-care (01) ==
LOC: DI 21:09
PROVIDERS: ATTEND Obstetrics & Gynecology
DX: O35.8XX0 Maternal care for other (suspected) fetal abnormality and damage, not applicable or unspecified (principal); Z3A.01 Less than 8 weeks gestation of pregnancy

== ENCOUNTER 2022-12-11 09:33 | Outpatient (CLI) | payer MEDICAID | END 2022-12-11 09:34 | disposition home or self-care (01) | LOC: LAB 09:33 | PROVIDERS: ATTEND Obstetrics & Gynecology | DX: O02.1 Missed abortion (principal) | CPT/HCPCS: 36415; 84702 ==

== ENCOUNTER 2022-12-18 13:22 | Outpatient (CLI) | payer MEDICAID | END 2022-12-18 13:23 | disposition home or self-care (01) | LOC: LAB.N 13:22 | PROVIDERS: ATTEND Obstetrics & Gynecology | DX: O02.1 Missed abortion (principal) | CPT/HCPCS: 36415; 84702 ==

== ENCOUNTER 2023-01-01 08:06 | Outpatient (CLI) | payer MEDICAID ==
[2023-01-01 12:14] LABS: BASOPHILS # (AUTO) 0.1 10^3/uL (0.0-0.1); BASOPHILS % (AUTO) 0.7 %; EOSINOPHILS # (AUTO) 0.1 10^3/uL (0.0-0.7); EOSINOPHILS % (AUTO) 1.4 %; HCT - HEMATOCRIT 44.1 % (37.0-47.0); HGB - HEMOGLOBIN 14.4 g/dL (12.0-16.0); LYMPHOCYTES # (AUTO) 2.9 10^3/uL (1.5-3.5); LYMPHOCYTES % (AUTO) 34.4 %; MEAN CORPUSCULAR HGB CONC 32.7 g/dL (32.0-36.0); MEAN CORPUSCULAR VOLUME 91.9 fL (81.0-99.0); MEAN PLATELET VOLUME 10.5 fL (7.9-10.8); MONOCYTES # (AUTO) 0.5 10^3/uL (0.0-1.0); MONOCYTES % (AUTO) 5.5 %; NEUTROPHILS # (AUTO) 4.8 10^3/uL (1.5-6.6); NEUTROPHILS % (AUTO) 57.8 %; PLT - PLATELET COUNT 251 10^3/uL (130-450); RED CELL DISTRIBUTION WIDTH 12.3 % (12.0-15.0); WHITE BLOOD COUNT 8.3 x10^3/uL (4.8-10.8)
[2023-01-01 12:51] LABS: THYROID STIMULATING HORMONE 2.92 uIU/mL (0.34-5.60)
[2023-01-01 13:03] LABS: ALBUMIN 4.3 g/dL (3.2-5.5); ALBUMIN/GLOBULIN RATIO 1.3 (1.0-2.2); ALKALINE PHOSPHATASE 35 IU/L (42-121); ALT ALANINE AMINOTRANSFERASE 15 IU/L (10-60); AST ASPARTATE AMINOTRANSFERASE 18 IU/L (10-42); BILIRUBIN,TOTAL 0.9 mg/dL (0.2-1.0); BUN - BLOOD UREA NITROGEN 13 mg/dL (6-20); CALCIUM 9.1 mg/dL (8.5-10.3); CARBON DIOXIDE - CO2 26 mmol/L (21-32); CHLORIDE 109 mmol/L (101-111); CHOL/HDL RATIO 3.4 (<4.4); CHOLESTEROL 183 mg/dL; CREATININE 0.6 mg/dL (0.4-1.0); GFR - MDRD 118 (>89); GLUCOSE 86 mg/dL (70-100); HDL CHOLESTEROL 54 mg/dL; LDL CHOLESTEROL,CALCULATED 98 mg/dL; LDL/HDL RATIO 1.8 (<4.4); POTASSIUM 3.9 mmol/L (3.5-5.0); SODIUM 140 mmol/L (135-145); TOTAL PROTEIN 7.6 g/dL (6.7-8.2); TRIGLYCERIDES 153 mg/dL; VLDL CHOLESTEROL 31 mg/dL
[2023-01-02 09:08] LABS: HBsAG CONFIRMATION Positive (.); HBsAG SCREEN Confirm. indicated (Negative)
[2023-01-04 07:08] LABS: HBV IU/ML 560 IU/mL (.); HBV IU/ML LOG10 2.748 (.)
[2023-01-05 20:08] LABS: AFP MOM See interpretation. (.); AFP VALUE 3.9 ng/mL (.); DIA MOM See interpretation. (.); DIA VALUE <30.00 pg/mL (.); DSR (BY AGE) 1 IN 690 (.); DSR (SECOND TRIMESTER) 1 IN See interpretation. (.); GESTAT. AGE METHOD As provided (.); HCG MOM See interpretation. (.); HCG VALUE <100 mIU/mL (.); MATERNAL AGE AT EDD 30.1 yr (.); OPEN SPINA BIFIDA RISK 1 IN See interpretation. (.); RESULTS Report (.); TEST RESULTS See interpretation. (.); TRISOMY 18 RISK See interpretation. (.); UE3 MOM See interpretation. (.); UE3 VALUE 0.03 ng/mL (.)
== END 2023-01-01 08:07 | disposition home or self-care (01) ==
LOC: LAB.N 08:06
PROVIDERS: ATTEND Nurse Practitioner
DX: B18.1 Chronic viral hepatitis B without delta-agent (principal); Z13.220 Encounter for screening for lipoid disorders; R53.83 Other fatigue
CPT/HCPCS: 36415; 80053; 80061; 81511; 83721; 84443; 85025; 87340; 87517

== ENCOUNTER 2023-01-04 11:37 | Outpatient (CLI) | payer MEDICAID | END 2023-01-04 11:38 | disposition home or self-care (01) | LOC: LAB.N 11:37 | PROVIDERS: ATTEND Obstetrics & Gynecology | DX: O02.1 Missed abortion (principal) | CPT/HCPCS: 36415; 84702 ==

== ENCOUNTER 2023-11-30 11:08 | Outpatient (CLI) | payer MEDICAID | END 2023-11-30 11:09 | disposition home or self-care (01) | LOC: LAB.N 11:08 | PROVIDERS: ATTEND Nurse Practitioner | DX: O46.91 Antepartum hemorrhage, unspecified, first trimester (principal); Z3A.00 Weeks of gestation of pregnancy not specified | CPT/HCPCS: 36415; 84702 ==

== ENCOUNTER 2023-12-02 11:17 | Outpatient (CLI) | payer MEDICAID | END 2023-12-02 11:18 | disposition home or self-care (01) | LOC: LAB.N 11:17 | PROVIDERS: ATTEND Nurse Practitioner | DX: O46.91 Antepartum hemorrhage, unspecified, first trimester (principal) | CPT/HCPCS: 36415; 84702 ==

== ENCOUNTER 2023-12-08 08:00 | Outpatient (CLI) | payer MEDICAID ==
[2023-12-08 16:18] LABS: BILIRUBIN,URINE NEGATIVE (NEGATIVE); GLUCOSE, URINE (UA) NEGATIVE (NEGATIVE); KETONES,URINE (UA) NEGATIVE (NEGATIVE); LEUKOCYTE ESTERASE, URINE LARGE (NEGATIVE); NITRITE,URINE NEGATIVE (NEGATIVE); OCCULT BLOOD,URINE NEGATIVE (NEGATIVE); PROTEIN,URINE NEGATIVE (NEGATIVE); UROBILINOGEN,URINE 0.2 (NORMAL) E.U./dL (NORMAL)
[2023-12-08 16:28] LABS: BACTERIA,URINE Many /HPF (None Seen); CLARITY,URINE CLEAR (CLEAR); RBC,URINE 0-5 /HPF (0-5); SQUAMOUS EPITHELIAL CELL,UR MANY Squamous (<= Few); WBC,URINE >25 /HPF (0-5)
[2023-12-08 20:45] LABS: BACTERIAL VAGINOSIS DNA POSITIVE (NEGATIVE); CANDIDA GLABRATA DNA NEGATIVE (NEGATIVE); CANDIDA GROUP DNA NEGATIVE (NEGATIVE); CANDIDA KRUSEI DNA NEGATIVE (NEGATIVE); TRICHOMONAS VAGINALIS DNA NEGATIVE (NEGATIVE)
== END 2023-12-08 23:59 | disposition home or self-care (01) ==
LOC: LAB.WC 08:00
PROVIDERS: ATTEND Obstetrics & Gynecology
DX: O99.891 Other specified diseases and conditions complicating pregnancy (principal); N89.8 Other specified noninflammatory disorders of vagina
CPT/HCPCS: 81001; 81514; 87086

== ENCOUNTER 2023-12-10 09:31 | Outpatient (CLI) | payer MEDICAID ==
[2023-12-10 10:41] LABS: BASOPHILS # (AUTO) 0.1 10^3/uL (0.0-0.1); BASOPHILS % (AUTO) 0.4 %; EOSINOPHILS # (AUTO) 0.1 10^3/uL (0.0-0.7); EOSINOPHILS % (AUTO) 0.4 %; HCT - HEMATOCRIT 42.4 % (37.0-47.0); HGB - HEMOGLOBIN 14.4 g/dL (12.0-16.0); LYMPHOCYTES # (AUTO) 2.1 10^3/uL (1.5-3.5); LYMPHOCYTES % (AUTO) 15.2 %; MEAN CORPUSCULAR HEMOGLOBIN 30.7 pg (27.0-31.0); MEAN CORPUSCULAR VOLUME 90.4 fL (81.0-99.0); MEAN PLATELET VOLUME 9.6 fL (7.9-10.8); MONOCYTES # (AUTO) 0.6 10^3/uL (0.0-1.0); NEUTROPHILS # (AUTO) 10.8 10^3/uL (1.5-6.6); NEUTROPHILS % (AUTO) 79.6 %; PLT - PLATELET COUNT 244 10^3/uL (130-450); RED BLOOD COUNT 4.69 10^6/uL (4.20-5.40); RED CELL DISTRIBUTION WIDTH 12.4 % (12.0-15.0); WHITE BLOOD COUNT 13.6 x10^3/uL (4.8-10.8)
--- NOTE | 2023-12-10 11:51 | Ultrasound Report ---
PROCEDURE: OB 1st Trimester INDICATIONS: BLEEDING FIRST TRIMESTER OUTSIDE/PRIOR DATING DATA: Last menstrual period (LMP): 10/19/2023. LMP-based estimated date of delivery (RAFI): 07/25/2024. First dating scan (date and location): 12/10/2023. Estimated date of delivery (RAFI) from first dating scan: 07/25/2024. TECHNIQUE: Real-time scanning was performed of the fetus and maternal pelvic organs, with image documentation. COMPARISON: None. FINDINGS: Intrauterine gestational sac present. Embryo: pole with crown-rump length measuring 1.22 cm, consistent with 7 weeks and 3 days. Heart rate: 150 bpm. Other: No perigestational fluid collection. Normal yolk sac is present. Measurement variability in dating: +/- 4 weeks by LMP, +/- 7 days by mean sac diameter (use before 6 weeks gestation if crown-rump length not able to be measured), +/- 5 days by crown-rump length (6-12 weeks gestation). Maternal organs: Ovaries appear within normal limits. Right ovarian corpus luteal cyst. Hypoechoic a chris of the uterine fundus, possible fibroid measuring 2.7 x 2.1 x 3.1 cm. IMPRESSION: 1.Single live intrauterine consistent with 7 weeks and 3 days. No perigestational bleed. 2.Uterine fibroid at the fundus measuring 3.1 cm. Reviewed by: Delon Connelly MD on 12/10/2023 11:50 AM PDT Approved by: Delon Connelly MD on 12/10/2023 11:50 AM PDT Station ID: [id number]
[2023-12-11 06:10] LABS: HIV SCREEN 4TH GENERATION Non Reactive (Non Reactive)
[2023-12-11 10:08] LABS: VARICELLA-ZOSTER AB IGG 955 index (Immune >165)
[2023-12-11 11:14] LABS: RPR Non Reactive (Non Reactive)
[2023-12-14 01:08] LABS: HCV AB Non Reactive (Non Reactive)
[2023-12-14 03:10] LABS: HBsAG CONFIRMATION Positive (.); HBsAG SCREEN Confirm. indicated (Negative)
== END 2023-12-10 09:32 | disposition home or self-care (01) ==
LOC: DI 09:31
PROVIDERS: ATTEND Nurse Practitioner
DX: O34.11 Maternal care for benign tumor of corpus uteri, first trimester (principal); D25.9 Leiomyoma of uterus, unspecified; Z3A.01 Less than 8 weeks gestation of pregnancy
CPT/HCPCS: 36415; 85025; 86592; 86762; 86787; 86803; 86850; 86900; 86901; 87340; 87389

== ENCOUNTER 2023-12-14 14:25 | Outpatient (CLI) | payer MEDICAID ==
[2023-12-14 18:10] LABS: ALBUMIN 4.2 g/dL (3.2-5.5); ALBUMIN/GLOBULIN RATIO 1.6 (1.0-2.2); BILIRUBIN,TOTAL 0.3 mg/dL (0.2-1.0); CALCIUM 9.6 mg/dL (8.5-10.3); CREATININE 0.6 mg/dL (0.6-1.3); POTASSIUM 3.6 mmol/L (3.5-4.5); TOTAL PROTEIN 6.9 g/dL (6.4-8.9)
== END 2023-12-14 14:26 | disposition home or self-care (01) ==
LOC: LAB.N 14:25
PROVIDERS: ATTEND Nurse Practitioner
DX: B18.1 Chronic viral hepatitis B without delta-agent (principal)
CPT/HCPCS: 36415; 80053; 86705; 86706; 87517; 87522

== ENCOUNTER 2024-01-04 11:28 | Outpatient (CLI) | payer MEDICAID ==
[2024-01-04 12:02] LABS: ALBUMIN 4.1 g/dL (3.2-5.5); ALBUMIN/GLOBULIN RATIO 1.3 (1.0-2.2); BILIRUBIN,TOTAL 0.4 mg/dL (0.2-1.0); CALCIUM 9.9 mg/dL (8.5-10.3); CREATININE 0.6 mg/dL (0.6-1.3); POTASSIUM 3.8 mmol/L (3.5-4.5); TOTAL PROTEIN 7.2 g/dL (6.4-8.9)
[2024-01-05 08:34] LABS: CHLAMYDIA TRACHOMATIS DNA NEGATIVE (NEGATIVE); NEISSERIA GONORRHOEAE DNA NEGATIVE (NEGATIVE); TRICHOMONAS VAGINALIS DNA NEGATIVE (NEGATIVE)
== END 2024-01-04 11:29 | disposition home or self-care (01) ==
LOC: LAB 11:28
PROVIDERS: ATTEND Obstetrics & Gynecology
DX: O98.419 Viral hepatitis complicating pregnancy, unspecified trimester (principal); B18.1 Chronic viral hepatitis B without delta-agent
CPT/HCPCS: 36415; 80053; 87491; 87591; 87661

== ENCOUNTER 2024-02-09 14:03 | Outpatient (CLI) | payer MEDICAID ==
[2024-02-10 00:21] LABS: BACTERIAL VAGINOSIS DNA NEGATIVE (NEGATIVE); CANDIDA GLABRATA DNA NEGATIVE (NEGATIVE); CANDIDA GROUP DNA POSITIVE (NEGATIVE); CANDIDA KRUSEI DNA NEGATIVE (NEGATIVE); TRICHOMONAS VAGINALIS DNA NEGATIVE (NEGATIVE)
== END 2024-02-09 14:04 | disposition home or self-care (01) ==
LOC: LAB.N 14:03
PROVIDERS: ATTEND Obstetrics & Gynecology
DX: L29.8 Other pruritus (principal)
CPT/HCPCS: 81514

== ENCOUNTER 2024-03-14 13:45 | Outpatient (CLI) | payer MEDICAID ==
--- NOTE | 2024-03-14 20:48 | Ultrasound Report ---
PROCEDURE: OB Anatomy Scan INDICATIONS: SUPERVISION OF OUTSIDE/PRIOR DATING DATA: Last menstrual period (LMP): 10/19/2023. LMP-based estimated date of delivery (RAFI): 07/25/2024. First dating scan (date and location): 12/10/2023. Estimated date of delivery (RAFI) from first dating scan: 07/25/2024. The below data below was generated using the working RAFI of 07/25/2024 TECHNIQUE: Ultrasound of the gravid uterus was performed and recorded. COMPARISON: None. FINDINGS: General: A single live intrauterine gestation is present. Presentation: Breech Placenta: Placental position is anterior without previa. Amniotic fluid index: 20.2 cm, 91 percentile for gestational age. heart rate: 138 beats per minute. Maternal cervical canal: 3.4 cm long; normal length is 2.5 cm or more. biometrics: Biparietal diameter: 5.2 cm, 21 week 5 day, 78 percentile Head circumference: 19.2 cm, 21 week 3 day, 61 percentile Abdominal circumference: 17.1 cm, 22 week 0 day, 76 percentile Femur length: 3.4 cm, 20 week 5 day, 28 percentile Estimated gestational age by working dates: 21 week 0 day Composite gestational age by current ultrasound: 21 week 3 day Estimated weight and percentile: 422 g, 68 percentile Measurement variability in biometric dating: +/- 10 days from 12-20 weeks gestation, +/- 2 weeks from 20-30 weeks gestation, +/- 3 weeks at 30 weeks gestation or more. Anatomic survey: Neuro: Ventricles are non-dilated at less than 10 mm. Cisterna magna is normal at 3-11 mm. Cerebel lum is normal in size and morphology. Nuchal skin fold: Normal at less than 6 mm between 14-20 weeks gestational age. Face: Nose and lips, facial profile are normal. Spine: No evidence for spina bifida. Heart: 4-chambered heart is present, with normal ventricular outflow tracts. Diaphragm: Diaphragm is intact. Stomach: Left-sided stomach is present. Kidneys: No hydronephrosis. Normal is less than 5 mm in 2nd trimester, less than 7 mm in 3rd trimester. Cord: 3-vessel cord has orthotopic insertion. Bladder: Normal in size. Extremities: All 4 extremities identified. Other: Not applicable. IMPRESSION: Single live intrauterine consistent with 21 week 3 gestation by current ultrasound Normal anatomic survey Reviewed by: Elvis Jackson MD on 03/14/2024 7:46 PM [place] Approved by: Elvis Jackson MD on 03/14/2024 7:46 PM [place] Station ID: [id number]
== END 2024-03-14 13:46 | disposition home or self-care (01) ==
LOC: DI 13:45
PROVIDERS: ATTEND Nurse Practitioner
DX: Z34.92 Encounter for supervision of normal pregnancy, unspecified, second trimester (principal)

== ENCOUNTER 2024-03-27 08:00 | Outpatient (CLI) | payer MEDICAID ==
[2024-03-28 00:21] LABS: BACTERIAL VAGINOSIS DNA NEGATIVE (NEGATIVE); CANDIDA GLABRATA DNA NEGATIVE (NEGATIVE); CANDIDA GROUP DNA POSITIVE (NEGATIVE); CANDIDA KRUSEI DNA NEGATIVE (NEGATIVE); TRICHOMONAS VAGINALIS DNA NEGATIVE (NEGATIVE)
== END 2024-03-27 23:59 | disposition home or self-care (01) ==
LOC: LAB.WC 08:00
PROVIDERS: ATTEND Obstetrics & Gynecology
DX: L29.8 Other pruritus (principal)
CPT/HCPCS: 81514; 87661; 87801

== ENCOUNTER 2024-04-07 11:48 | Outpatient (CLI) | payer MEDICAID ==
[2024-04-07 20:41] LABS: BACTERIAL VAGINOSIS DNA NEGATIVE (NEGATIVE); CANDIDA GLABRATA DNA NEGATIVE (NEGATIVE); CANDIDA GROUP DNA NEGATIVE (NEGATIVE); CANDIDA KRUSEI DNA NEGATIVE (NEGATIVE); TRICHOMONAS VAGINALIS DNA NEGATIVE (NEGATIVE)
== END 2024-04-07 11:49 | disposition home or self-care (01) ==
LOC: LAB.N 11:48
PROVIDERS: ATTEND Obstetrics & Gynecology
DX: L29.8 Other pruritus (principal)
CPT/HCPCS: 81514

== ENCOUNTER 2024-04-20 10:50 | Outpatient (CLI) | payer MEDICAID ==
[2024-04-20 18:33] LABS: HCT - HEMATOCRIT 37.9 % (37.0-47.0); HGB - HEMOGLOBIN 12.2 g/dL (12.0-16.0); MEAN CORPUSCULAR HEMOGLOBIN 30.7 pg (27.0-31.0); MEAN CORPUSCULAR HGB CONC 32.2 g/dL (32.0-36.0); MEAN CORPUSCULAR VOLUME 95.5 fL (81.0-99.0); MEAN PLATELET VOLUME 10.8 fL (7.9-10.8); RED BLOOD COUNT 3.97 10^6/uL (4.20-5.40); RED CELL DISTRIBUTION WIDTH 13.2 % (12.0-15.0); WHITE BLOOD COUNT 14.6 x10^3/uL (4.8-10.8)
[2024-04-20 19:43] LABS: ALBUMIN 3.5 g/dL (3.2-5.5); ALBUMIN/GLOBULIN RATIO 1.3 (1.0-2.2); BILIRUBIN,TOTAL 0.3 mg/dL (0.2-1.0); CREATININE 0.5 mg/dL (0.6-1.3); POTASSIUM 3.7 mmol/L (3.5-4.5); TOTAL PROTEIN 6.3 g/dL (6.4-8.9)
== END 2024-04-20 10:51 | disposition home or self-care (01) ==
LOC: LAB.N 10:50
PROVIDERS: ATTEND Obstetrics & Gynecology
DX: O98.419 Viral hepatitis complicating pregnancy, unspecified trimester (principal); B18.1 Chronic viral hepatitis B without delta-agent; O99.719 Diseases of the skin and subcutaneous tissue complicating pregnancy, unspecified trimester; L29.8 Other pruritus
CPT/HCPCS: 36415; 80053; 82950; 85027; 86592; 87517

== ENCOUNTER 2024-04-27 08:04 | Outpatient (CLI) | payer MEDICAID ==
[2024-04-27 08:39] LABS: GTT GLUCOSE,FASTING 85 mg/dL (74-109)
== END 2024-04-27 08:05 | disposition home or self-care (01) ==
LOC: LAB 08:04
PROVIDERS: ATTEND Obstetrics & Gynecology
DX: Z34.90 Encounter for supervision of normal pregnancy, unspecified, unspecified trimester (principal)
CPT/HCPCS: 36415; 82951; 82952

== ENCOUNTER 2024-07-25 08:07 | Inpatient (IN) ==
[2024-07-25] MEDS ORDERED: LIDOCAINE 2%-EPI 1:100000 20 ML MDV ONE (08:28)
[2024-07-25] MEDS ORDERED: ROPIVACAINE 0.2% 200 MG/100 ML BAG EP ONE (08:28)
[2024-07-25] MEDS ORDERED: OXYTOCIN 10 UNIT/ML VIAL IM PRN (08:29)
[2024-07-25] MEDS ORDERED: ACETAMINOPHEN 500 MG TABLET PO PRN ×3 (08:29→14:08)
[2024-07-25] MEDS ORDERED: fentaNYL 100 MCG/2 ML VIAL IVP PRN (08:29)
[2024-07-25] MEDS ORDERED: LABETALOL 20 MG/4 ML SYRINGE IVP PRN ×7 (08:29→14:08)
[2024-07-25] MEDS ORDERED: lidocaine 1% 20 ML MDV ID PRN (08:29)
[2024-07-25] MEDS ORDERED: miSOPROStoL 200 MCG TABLET PR PRN (08:29)
[2024-07-25] MEDS ORDERED: hydrALAZINE INJ 20 MG/ML VIAL IVP PRN ×5 (08:29→14:08)
[2024-07-25] MEDS ORDERED: ONDANSETRON ODT 4 MG TABLET PO PRN (08:29)
[2024-07-25] MEDS ORDERED: miSOPROStoL 200 MCG TABLET BC PRN (08:29)
[2024-07-25] MEDS ORDERED: SODIUM CHLORIDE FLUSH 0.9% 10 ML SYRINGE IVP PRN (08:29)
[2024-07-25] MEDS ORDERED: TERBUTALINE 1 MG/ML VIAL SUBQ PRN (08:29)
[2024-07-25] MEDS ORDERED: TRANEXAMIC ACID IN NACL 1,000 MG/100 ML BAG IV PRN (08:29)
[2024-07-25] MEDS ORDERED: NIFEdipine 10 MG CAPSULE PO PRN ×3 (08:29→14:08)
[2024-07-25] MEDS ORDERED: METHYLERGONOVINE 0.2 MG/ML VIAL IM PRN (08:29)
[2024-07-25] MEDS ORDERED: CALCIUM CARBONATE CHEW 500 MG TABLET PO PRN (08:29)
[2024-07-25] MEDS: LACTATED RINGERS 1,000 ML IV PRN (08:30)
[2024-07-25] MEDS ORDERED: LACTATED RINGERS 1,000 ML ONE (08:32)
[2024-07-25 09:00] LABS: BASOPHILS # (AUTO) 0.1 10^3/uL (0.0-0.1); BASOPHILS % (AUTO) 0.3 %; EOSINOPHILS # (AUTO) 0.1 10^3/uL (0.0-0.7); EOSINOPHILS % (AUTO) 0.5 %; HCT - HEMATOCRIT 44.9 % (37.0-47.0); HGB - HEMOGLOBIN 15.1 g/dL (12.0-16.0); LYMPHOCYTES # (AUTO) 2.1 10^3/uL (1.5-3.5); LYMPHOCYTES % (AUTO) 13.5 %; MEAN CORPUSCULAR HEMOGLOBIN 30.9 pg (27.0-31.0); MEAN CORPUSCULAR HGB CONC 33.6 g/dL (32.0-36.0); MEAN PLATELET VOLUME 11.5 fL (7.9-10.8); MONOCYTES # (AUTO) 0.6 10^3/uL (0.0-1.0); MONOCYTES % (AUTO) 3.8 %; NEUTROPHILS # (AUTO) 12.4 10^3/uL (1.5-6.6); NEUTROPHILS % (AUTO) 81.4 %; PLT - PLATELET COUNT 183 10^3/uL (130-450); RED BLOOD COUNT 4.88 10^6/uL (4.20-5.40); RED CELL DISTRIBUTION WIDTH 13.5 % (12.0-15.0); WHITE BLOOD COUNT 15.2 x10^3/uL (4.8-10.8)
[2024-07-25] MEDS ORDERED: SODIUM CHLORIDE FLUSH 0.9% 10 ML SYRINGE IVP SCH (09:00)
[2024-07-25] MEDS ORDERED: OXYTOCIN/SODIUM CHLORIDE 500 ML IV SCH (09:00)
[2024-07-25 09:20] LABS: ALBUMIN 3.6 g/dL (3.2-5.5); ALBUMIN/GLOBULIN RATIO 1.1 (1.0-2.2); BILIRUBIN,TOTAL 0.5 mg/dL (0.2-1.0); CALCIUM 9.7 mg/dL (8.5-10.3); CREATININE 0.7 mg/dL (0.6-1.3); POTASSIUM 3.7 mmol/L (3.5-4.5)
--- NOTE | 2024-07-25 09:22 | ANESTHESIA PROCEDURE NOTE ---
Pre-Anesthesia VS, & Labs Diagnosis Surgical Diagnosis:: Induction of labor Procedure Procedure: Vaginal delivery Vitals Height (in): 5 ft 6 in Weight (kg): 72 kg Body Mass Index: 25.6 BMI Classification: Overweight NPO Last Fluid Intake: clear liquids Is Patient ?: Yes Meds/Allgy Home Medications Ambulatory Orders Medication Instructions Recorded Confirmed vits no.126-ferrous fum tab PO 06/05/24 07/20/24 28 mg iron-folic acid 800 mcg tablet (Classic ) Lactobacillus rhamnosus GG 20 cell PO 06/20/24 07/20/24 billion cell capsule (Probiotic Digestive Care) Allergies Allergies Allergy/AdvReac Type Severity Reaction Status Date / Time No Known Drug Allergies Allergy Verified 07/20/24 11:05 [facility] Medical History Medical History (Updated 07/25/24 @ 09:22 by Marbella Mcdaniels CRNA) Gestational diabetes diet controlled Chronic hepatitis B Family History Family History (Updated 06/01/24 @ 16:09 by Mary Nuñez LPN) Mother Diabetes Social History Social History (Updated 06/05/24 @ 13:41 by Mary Walker MD) Smoking Status: Never smoker Second hand tobacco smoke exposure: No Do you dip or chew tobacco?: No Do you vape?: No Living arrangement: At home Marital Status: Living Condition: With spouse/s.o. 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
[2024-07-25] MEDS ORDERED: ROPIVACAINE 0.2% 200 MG/100 ML BAG EP PRN (09:23)
[2024-07-25] MEDS ORDERED: ePHEDrine 50 MG/ML VIAL IVP PRN (09:23)
[2024-07-25] MEDS ORDERED: ONDANSETRON 4 MG/2 ML VIAL IVP PRN (09:23)
--- NOTE | 2024-07-25 09:59 | HISTORY & PHYSICAL EXAMINATION ---
Admit History Smoking Status: Never smoker Other Maternal History Other Maternal History: HPI: Chetan is a 29 yo at 40w0d who is admitted for IOL for diet-controlled gestational diabetes. She is now comfortable s/p epidural. Reports contractions prior to epidural placement. Denies LOF, VB. + FM. Last growth US 07/03, had been referred to [facility] for possible growth restriction: EFW 2,832g 34%. PE: Vitals signs reviewed Gen: NAD CV: RRR Resp: non labored respirations Chest: non labored respirations Abd: gravid, non tender. Ext: no LE edema SVE: 5/-1, cephalic, AROM performed with copious clear fluid monitoring: FHTs: 140s bpm baseline, + accel, - decel, mod variability [place]: 4-6 min FHTs: Cat 1 Labs: CBC, CMP reviewed. T&S and Hep B PCR pending. A/P: 29 yo at 40w0d who is admitted for IOL. - Diet controlled gDM - Chronic Hep B - GBS neg - Rh + - Rubella immune - Varicella immune - Consent signed for IOL. Now s/p AROM since she is jennifer regularly on her own mechanism. Comfortable with epidural. Plan for repeat SVE in 4 hours or sooner PRN. Will avoid FSE if possible. - BG checks q 2 hrs - Hep B PCR ordered and pending on admission Jocelyne Lal MD Meds/Allgy Home Medications Ambulatory Orders Medication Instructions Recorded Confirmed vits no.126-ferrous fum tab PO 06/05/24 07/20/24 28 mg iron-folic acid 800 mcg tablet (Classic ) Lactobacillus rhamnosus GG 20 cell PO 06/20/24 07/20/24 billion cell capsule (Probiotic Digestive Care) Allergies Allergies Allergy/AdvReac Type Severity Reaction Status Date / Time No Known Drug Allergies Allergy Verified 07/20/24 11:05 [facility] Medical History Medical History Chronic hepatitis B Gestational diabetes diet controlled Family History Family History Mother Diabetes Social History Social History Smoking Status: Never smoker Second hand tobacco smoke exposure: No Do you dip or chew tobacco?: No Do you vape?: No Living arrangement: At home Marital Status: Living Condition: With spouse/s.o. 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
[2024-07-25] MEDS: OXYTOCIN/SODIUM CHLORIDE 500 ML IV PRN (10:58)
[2024-07-25] MEDS ORDERED: OXYTOCIN/SODIUM CHLORIDE 500 ML IV PRN ×2 (11:16→14:08)
[2024-07-25] MEDS ORDERED: WITCH HAZEL/GLYCERIN 1 PAD TOP PRN ×2 (11:16→14:13)
[2024-07-25] MEDS ORDERED: diphenhydrAMINE 25 MG CAPSULE PO PRN ×2 (11:16→14:13)
[2024-07-25] MEDS ORDERED: NALOXONE 0.4 MG/ML VIAL IVP PRN ×2 (11:16→14:08)
[2024-07-25] MEDS ORDERED: LABETALOL 5 MG/1 ML 20 ML MDV IVP PRN ×2 (11:16→14:08)
[2024-07-25] MEDS ORDERED: oxyCODONE 5 MG TABLET PO PRN ×2 (11:16→14:08)
[2024-07-25] MEDS ORDERED: SIMETHICONE CHEW 80 MG TABLET PO PRN ×2 (11:16→14:08)
[2024-07-25] MEDS ORDERED: IBUPROFEN 600 MG TABLET PO PRN (11:16)
[2024-07-25] MEDS ORDERED: MAGNESIUM HYDROXIDE 2,400 MG/30 ML UDC PO PRN (11:16)
[2024-07-25] MEDS ORDERED: HYDROCORTISONE 1% CREAM 28 GM TUBE TOP PRN ×2 (11:16→14:13)
--- NOTE | 2024-07-25 11:18 | DELIVERY NOTE ---
Delivery Note Labor Labor: positive Induced by ARM Delivery Method Delivery Method: positive Spontaneous vaginal delivery Presentation Presentation: positive Vertex and JENNIFER - left occiput anterior Nuchal Cord Nuchal Cord: positive None Amniotic Fluid Description Amniotic Fluid Description: positive Clear Episiotomy Type Episiotomy Type: positive None Laceration Laceration: positive 2nd degree Suture Suture Type: positive Other (Rapide) Suture Size: positive 3-0 [place]: positive Placed in direct skin contact with mother, Stimulated and Warmed Cord Cord: positive 3 vessels Placenta Placenta: positive Intact and Spontaneous Estimated Blood Loss Estimated Blood Loss (in cc): 300 Post Delivery Events Post Delivery Events: positive No post delivery events Delivery Comments (Free Text/Narrative) Delivery Comments (Free Text/Narrative): Approximately 1 hour after AROM, I went to bedside to check patient after a deep variable deceleration, found to be complete and + 2 station. She was positioned for delivery. The anterior shoulder delivered easily with maternal effort and gentle downward pressure followed by the posterior shoulder and the remainder of the body. The was placed on the mother's abdomen. After 60 sec the cord was clamped times two and cut. Cord blood collected. Pitocin was started. The placenta was delivered intact. Good uterine tone noted. The 2nd degree laceration was repaired in a running non-locking fashion with 3-0 Rapide. Increased bleeding noted at this point, therefore bimanual exam was performed with expression of some clots. An additional figure of eight stitch was placed with the same suture at the hymenal ring due to oozing. Perineal hemostasis and good uterine noted at completion of procedure. Jocelyne Lal MD
[2024-07-25] MEDS ORDERED: DOCUSATE SODIUM 100 MG CAPSULE PO SCH (21:00)
[2024-07-25] MEDS: DOCUSATE SODIUM 100 MG CAPSULE PO SCH (23:40)
[2024-07-26] MEDS: IBUPROFEN 600 MG TABLET PO PRN (08:42)
--- NOTE | 2024-07-26 09:01 | Discharge Summary ---
Discharge Summary Admit Date: 07/25/24 Discharge Date: 07/26/24 Discharging Provider: Jocelyne Lal MD [facility] History of Present Illness: Admission Diagnosis: - SIUP at 40weeks - Diet controlled gestational diabetes - Chronic hep B - GBS neg - Rh+ - Rubella immune - Varicella immune Discharge Diagnosis: - Same, delivered Procedures: , repair of 2nd degree laceration Hospital Course: Chetan is a 29yo now who presented for IOL at 40weeks for diet controlled gestational diabetes. She was 5cm on admission, had epidural placed, underwent AROM, and then delivered quickly thereafter. Uncomplicated . Her course has been uncomplicated. Condition on Discharge: SUBJECTIVE: day 1 She feels well. Pain is well controlled, some cramping. The baby is doing well. Baby is feeding via . She is ambulating well, tolerating normal diet, urinating without difficulty. Lochia is reported as normal. OBJECTIVE: Vital signs reviewed GENERAL: NAD CHEST: non labored respirations ABD: soft, non tender, fundus firm EXT: no lower extremity edema; No evidence of DVT LAB & IMAGING STUDIES: See below PLAN: Plan for discharge home with follow up in clinic in 1 week. Discussed OK for virtual visit if desired. Reviewed home care instructions and medications. Patient counseled regarding signs and symptoms of infection, excessive bleeding, vaginal rest and activity restrictions. Contraceptive plans to be formalized at visit. Discussed that additional support is available in our clinic if needed. ALLERGIES Allergies Allergy/AdvReac Type Severity Reaction Status Date / Time No Known Drug Allergies Allergy Verified 07/20/24 11:05 MEDICATIONS Ambulatory Orders Medication Instructions Recorded Confirmed vits no.126-ferrous fum 1 tab PO DAILY 06/05/24 07/25/24 28 mg iron-folic acid 800 mcg tablet (Classic ) LABS 07/25/24 08:30 07/25/24 08:30 TIME SPENT Time Spent in Discharge (Minutes): 25 Discharge Plan Discharge Patient Disposition: Home, Self Care Prescriptions: Continued Classic 28 mg iron- 800 mcg tablet 1 tab PO DAILY Print Language: Irish (Unspecified) Patient Instructions: Vaginal After, Childbirth Breast Care, Vaginal Incis Care, Change Expect Parents
[2024-07-26 14:38] VITALS: O2SAT 99
--- NOTE | 2024-07-26 14:44 | Labor Flowsheet ---
Labor Flowsheet Datetime Report Generated by CPN: 07/26/2024 14:43 Datetime: 07/26/2024 09:27 VITAL SIGNS NBP Sys/Sonia/Mean (mmHg): 95 : 50 : 61 Pulse: 81 Datetime: 07/25/2024 10:58 MEDICATIONS Pitocin (milliunits): Started @ 350 Medication Comments: PP pitocin bolusing per verbal order from Dr. Lukasz Datetime: 07/25/2024 10:44 SpO2 (%): 97 UTERINE ACTIVITY Monitor Mode: Palpation Frequency (min): 3 Quality: Strong Duration (sec): 60 Pattern: Normal: <= 5 Contractions in 10 Minutes Resting Tone (Palpate): Relaxed ASSESSMENT A Monitor Mode: External US FHR Baseline Rate : 135 Variability: Moderate 6-25 bpm Decelerations: Late; Prolonged Category: Category II Comments: RN and MD at bedside continuously while pushing and continuously assessing FHR and ctx Oxygen Method: Room Air Datetime: 07/25/2024 10:43 Pushing Progress: Descent with Pushing; Presenting Part Visible; with Pushing; Pushing Eff ectively with Contractions Datetime: 07/25/2024 10:30 STAGE 2 Pushing: Coached on Pushing Pushing Position: Pushing with Contractions; Pushing Lithotomy Datetime: 07/25/2024 10:24 Actions for Decelerations: Sterile Vaginal Exam Datetime: 07/25/2024 10:23 Provider Reviewed Strip: Yes COMMUNICATION Communication: RN at Bedside Communication Comments: Dr. Lukasz at bedside Datetime: 07/25/2024 10:12 Patient Position/Activity: Right Lateral Datetime: 07/25/2024 09:55 I/O Interventions: Ayala Cath Inserted Datetime: 07/25/2024 09:32 VAGINAL EXAM Dilatation (cm): 5.0 Effacement (%): 90 Station: -1 Exam by: Dr. Lal Membrane Status: Ruptured Membranes Rupture Method: Artificial Amniotic Fluid Color: Clear Amniotic Fluid Amount: Moderate Vaginal Bleeding: None Cervix, Consistency: Soft Membrane Comments: by Dr. Lal Datetime: 07/25/2024 08:54 Epidural Procedure: Loading Dose; Completed Datetime: 07/25/2024 08:41 PROCEDURE TIME OUT Procedure Verify: Correct Patient Identity; Correct Side and Site are Marked; Accurate Procedure Co nsent Form; Agreement on Procedure to be Done; Correct Patient Position; Relevant Images and Results are Properly Labeled and Displayed; Addressed Need to Administer Antibiotics or Fluids for Irrigation ; Safety Precautions Based on Patient History or Medication Use ANESTHESIA Anesthesia Plans: Epidural Epidural Positioning: Sitting Datetime: 07/25/2024 08:40 Accelerations: 10X10 Datetime: 07/25/2024 08:37 Anesthesia Comments: anesthesia notified that cbc not resulted yet for this AM Datetime: 07/25/2024 08:30 PATIENT CARE IV/Blood Work: IV Started; IV Bolus Started; IV Bolus Given ml @ 1000; Labs Drawn with IV Start; IV Infusing per Order; New IV Bag Hung; IV Bag Number @ 1 Patient Care Comments: IV bolus started for epidural preperation Datetime: 07/25/2024 08:28 PAIN Pain Scale: 2 Pain Coping: Talking Through Contractions; Declines Medication or Epidural Datetime: 07/25/2024 08:20 Membranes Ruptured Date/Time: 07/25/2024 09:32 Amniotic Fluid Odor: Normal
[2024-07-28 13:09] LABS: HBV IU/ML 120 IU/mL (.); HBV IU/ML LOG10 2.079 (.)
== END 2024-07-26 14:00 | disposition home or self-care (01) | DRG 806 ==
LOC: WFO 08:07 → FBP 08:09
PROVIDERS: ADMIT Obstetrics & Gynecology; ATTEND Obstetrics & Gynecology